=== PATIENT | female | born 1975 | race Caucasian/White ===

== ENCOUNTER → 2020-02-20 10:32 | Outpatient (CLI) | payer MEDICARE, SELFPAY ==
--- NOTE | 2020-02-20 10:34 | RAD_ITS ---
STUDY: X-RAY - RIGHT KNEE REASON FOR EXAM: Right knee pain. TECHNIQUE: 4 view(s) of the knee. COMPARISON: None. FINDINGS: Normal visualized distal femur. Normal visualized proximal tibia and fibula. Normal proximal tibiofibular articulation. There is moderate joint space narrowing of the medial femorotibial compartment. Normal lateral femorotibial compartment. Normal patellofemoral articulation. The soft tissue structures are unremarkable. RAD/Knee 4 or More Views IMPRESSION: Joint space narrowing of the medial femorotibial compartment. Electronically Signed: Andrea Pepper MD at 11:06 EDT Tel , Service support ,
== END ==
PROVIDERS: PCP Internal Medicine; Referring Provider Orthopaedic Surgery; Visit Provider Orthopaedic Surgery
DX: M25.561 Pain in right knee (principal)
CPT/HCPCS: 73564

== ENCOUNTER 2020-03-25 10:47 | Day surgery (SDC) | payer MEDICARE, SELFPAY ==
--- NOTE | 2020-02-20 11:26 | HP_ITS ---
I have re-examined the patient. There are no clinical changes since date of exam. Intake Intake Visit Reasons: RIGHT KNEE Allergies feathers Allergy (Unknown, Verified 02/20/20 10:40) Unknown house dust Allergy (Unknown, Verified 02/20/20 10:40) Unknown sumatriptan [From Imitrex] Adverse Reaction (Severe, Verified 02/20/20 10:40) rapid heart rate vancomycin Adverse Reaction (Severe, Verified 02/20/20 10:40) Red man syndrome Medications alprazolam 0.25 mg tablet 0.25 mg PO QHS PRN 02/20/20 [History Confirmed 02/20/20] cholecalciferol (vitamin D3) 1,250 mcg (50,000 unit) capsule 1,250 mcg PO cap 02/20/20 [History Confirmed 02/20/20] ergocalciferol (vitamin D2) 1,250 mcg (50,000 unit) capsule PO 02/20/20 [History Confirmed 02/20/20] hydrochlorothiazide 25 mg tablet ea PO 02/20/20 [History Confirmed 02/20/20] levothyroxine 175 mcg tablet PO 02/20/20 [History Confirmed 02/20/20] lisinopril 5 mg tablet ea PO 02/20/20 [History Confirmed 02/20/20] loratadine 10 mg tablet ea PO 02/20/20 [History Confirmed 02/20/20] lovastatin 10 mg tablet ea PO 02/20/20 [History Confirmed 02/20/20] medroxyprogesterone 150 mg/mL intramuscular suspension mg IM 02/20/20 [History Confirmed 02/20/20] meloxicam 15 mg tablet PO 02/20/20 [History Confirmed 02/20/20] omeprazole 20 mg capsule,delayed release PO 02/20/20 [History Confirmed 02/20/20] rizatriptan 10 mg tablet 10 mg PO ONCE 02/20/20 [History Confirmed 02/20/20] sertraline 50 mg tablet mg PO 02/20/20 [History Confirmed 02/20/20] [facility] Medical History (Updated 02/20/20 @ 10:54 by Tatyana Ruelas) History of Gamma knife radiation (Acute) History of embolism (Acute) history of removal of thyroid (Acute) vocal cord surgery (Acute) Surgical History (Updated 02/20/20 @ 10:54 by Tatyana Ruelas) History of carpal tunnel surgery (Acute) History of cranioplasty (Acute) History of knee surgery (Acute) History of surgical procedure on mouth (Acute) Hx of ventricular shunt (Acute) Social History (Updated 02/20/20 @ 11:[address] Sandi Gao DO) Smoking Status: Current every day smoker tobacco type: cigarettes HPI RIGHT KNEE: Surgical H&P: Yes Details: Parts of this documentation were recorded by a scribe, this documentation accurately reflects the service provided and the decisions made by me, Dr. Sandi Gao, 02/20/20 1015. CARLOS LOVELL is a 44 year old F NEW patient here today for right knee pain. Referred by Shayy. States she as had knee pain since October when she had a twisting injury. She has medial sided knee pain. She is having painful popping. She feels like her knee will give out on her at times. She has been using a Donjoy brace which is helpful. She has had a right knee [place] [address] Jones she has had steroid injection for years and states that the most recent injection was 01/2020 and states this was only effective for maybe 1 week then her pain returned and she had a arthrogram completed of the right knee. Hx of brain tumors 2008. Ortho Exam Right Knee Skin/Wound: No erythema, No ecchymosis, Yes swelling Contralateral Normal: Yes Homans Sign: No 1+: Effusion Knee ROM: Yes ROM-Extension -20 to 0, No ROM-Flexion 0-140 Examination: Yes Med jt line tenderness, No Lat jt line tenderness, Yes Jaylen's Test Stability: NML: Anterior Drawer, NML: Posterior Drawer, NML: Valgus 30, NML: Varus 30 Patellar Tilt Normal: No Patella Grind: Yes Left Knee Homans Sign: No Assessment & Plan Problems 1. Tear of medial meniscus of right knee, current, unspecified tear type, initial encounter S83.241A 2. Mechanical pain of right knee M25.561 Plan Obtained X-rays of patient's right knee. Personally reviewed x-rays. There is no obvious fracture, dislocation, or lucency noted. Personally reviewed patients CT arthrogram of the right knee and educated her that she has a medial meniscus tear along with some mild OA of the knee. Treatment options are steroid injection or PT or surgery repair vs meniscectomy. Reviewed the pre-operative plans with the patient. Risks and benefits of the procedure were fully explained, including but not limited to infection, neurovascular injury, continued pain, arthritis, stiffness, need for further surgery, re-injury, DVT, PE, general risks of anesthesia, and loss of limb or life. The patient understands all the risks. Educated that she will not know until she goes in if she will have a meniscectomy vs repair. Educated that if she has a meniscal root repair then she will require another incision. Will give her anceph for ATB. We discussed the current risk associated COVID-19. While it is understood that there is a community spread of COVID 19 the risk of fran COVID-19 while at [facility] is very low, however, the risk cannot be completely mitigated because of the community spread of the disease. We discussed in detail the risk of exposure to and or potential harm posed by the COVID-19 virus with having a surgery/procedure at this time versus the risk of delaying the surgery/procedure. Is not possible to know either the risk of delaying the surgery procedure or chance of getting an infection with perfect accuracy, but a joint decision was made to proceed at this time with a schedule surgery/procedure as indicated on the consent form. Patient was notified that we will need to comply with any screening or testing [facility] wishes to perform or that surgery may be delayed for any positive results. Follow up to sign surgical consent with Juan Luis Argueta For medial meniscus root repair, synovectomy, repair as indicated. or sooner if pain, swelling, numbness or associated symptoms, or concerns develop. All questions answered. Patient in agreement of plan. Orders Orders: Knee 4 or More Views Today M25.561 Coding Level of Care Code 00869 Diagnoses Tear of medial meniscus of right knee, current, unspecified tear type, initial encounter S83.241A ??Encounter type: initial encounter ??Meniscus tear of knee type: unspecified type ??Tear current or old: current Mechanical pain of right knee M25.561 COVID (Procedure Consent) Procedure Criteria Procedure Criteria: Yes Elective The surgeon/proceduralist and patient have discussed in detail the risk of exposure to and/or potential harm posed by the COVID-19 virus with having a surgery/procedure at this time versus the risk of? delaying the surgery/procedure. It is not possible to know either the risk of delaying the surgery or procedure or chance of getting an infection with perfect accuracy, but a joint decision was made between the patient and the surgeon/proceduralist ?to proceed at this time with the scheduled surgery/procedure as indicated on the consent form. 02/20/20 1126 <Electronically signed by Sandi muniz DO> Date _ Sandi Gao DO
[2020-03-25] VITALS (7 sets, daily range): BP systolic 122–144; BP diastolic 63–82; PULSE 91–100; RESP 16; TEMP 36.2–37.2; O2SAT 97–100; BMI 39.9
[2020-03-25] MEDS: Lactated Ringers 1,000 ML 100 ML IV ×2 (11:26→14:16)
[2020-03-25 12:03] LABS: Internal QC Validated? YES +Cl - CLEAR BKGD; Pregnancy, Urine Negative Negative
[2020-03-25] MEDS: Cefazolin 2 GM in 0.9% Normal Saline 100 ML IV (12:20)
[2020-03-25] MEDS: Epinephrine (1 mg/ml) 1 MG/ML VIAL (12:40)
[2020-03-25] MEDS: Bupiv/Epi 0.25% 30 ML Vial (13:20)
[2020-03-25] MEDS: Mupirocin Ointment 22gm Tube 1 APPLIC (13:22)
--- NOTE | 2020-03-25 13:26 | DCINST_ITS ---
Discharge Diet: No Restrictions - Remove dressings postop day 4 and apply Band- Aids to incision sites, may shower and get incision wet postop day 4, weight- bear as tolerated left leg, call with increased pain numbness tingling or further issues arise, call if calf pain or calf swelling, take pain medications as prescribed do not take any other Tylenol products, follow-up in 2 weeks Discharge Activity: May Not Drive May shower in (days): 1 Ice area for (Minutes): 20 - Every hour while awake. Weight Bearing Status: Weight bearing as tolerated Keep extremity elevated above heart level: Operative Extremity Call your doctor if your incision/area has: Continuous Slow Oozing, Sudden Increased Bleeding, Increased Pain/ Swelling, Increased Redness, Foul Smelling Discharge Call your doctor if you observe: Fever of 101 or Higher, Coldness, Increased Pain, Numbness or Tingling, Change in Color, Calf discomfort Allergies/Adverse Reactions: Allergies feathers Allergy (Unknown, Verified 03/16/20 13:46) Unknown house dust Allergy (Unknown, Verified 03/16/20 13:46) Unknown sumatriptan [From Imitrex] Adverse Reaction (Severe, Verified 03/16/20 13:46) rapid heart rate vancomycin Adverse Reaction (Severe, Verified 03/16/20 13:46) Red man syndrome Medications to take at Discharge cholecalciferol (vitamin D3) 1,250 mcg (50,000 unit) capsule 1,250 mcg PO QWEEK cap 02/20/20 hydrochlorothiazide 25 mg tablet 25 mg PO DAILY 02/20/20 levothyroxine 175 mcg tablet 225 mcg PO DAILY 02/20/20 lisinopril 5 mg tablet 10 mg PO DAILY 02/20/20 loratadine 10 mg tablet 10 mg PO DAILY 02/20/20 lovastatin 10 mg tablet 10 mg PO DAILY 02/20/20 meloxicam 15 mg tablet 15 mg PO DAILY 02/20/20 sertraline 50 mg tablet 50 mg PO DAILY 02/20/20 MedroxyPROGESTERone [Depo-Provera] 150 mg IM .[id number] 03/16/20 Pantoprazole Sodium [Protonix] 40 mg PO DAILY 03/16/20 Rizatriptan Benzoate [Maxalt] 10 mg PO .X1 PRN 03/16/20 Oxycodone HCl/Acetaminophen [Percocet 5/325] 1 - 2 tab PO Q6H PRN PRN 5 Days #28 tab 03/25/20 The following prescriptions were given: Oxycodone HCl/Acetaminophen [Percocet 5/325] 1 - 2 tab PO Q6H PRN PRN 5 Days #28 tab PRN Reason: Pain Transmission Status: Received by [facility] Primary Care Physician: Ramiro Clemens MD [Primary Care Provider] - Test Results: Test results from this visit will be discussed in further detail at your follow- up appointment, if applicable. Please Follow Up With: Sandi Gao, DO - [phone]
--- NOTE | 2020-03-25 13:27 | PCM.OPRPT ---
Report of Operation Date of Procedure: 03/25/20 Pre-Operative Diagnosis: right knee medial meniscus tear, synovitis, osteoarthritis Post-Operative Diagnosis: same Surgery/Procedure Performed:: sark, pmm, extensive synovectomy, lateral tibial plateau chondroplasty card services specialist: Juan Luis Argueta Type of Anesthesia:: General Anesthesiologist: Miguel Angel Pemberton Drains: tt-40min Estimated Blood Loss (mL): min Fluids Replaced: 800cc Description of Procedure: Preop note Patient is a 44-year-old male with continued right knee pain and locking studies confirm a flap tear of her medial meniscus. Risk benefits and alternatives were discussed with patient. Risks include but not limited to blood loss, blood clot, infection, neurovascular, failure procedure, loss of life and loss of limb. Patient is aware like proceed with right knee arthroscopy para indicated Archie GOMEZ We discussed the current risk associated COVID-19. While it is understood that there is a community spread of COVID 19 the risk of fran COVID-19 while at [facility] is very low, however, the risk cannot be completely mitigated because of the community spread of the disease. We discussed in detail the risk of exposure to and or potential harm posed by the COVID-19 virus with having a surgery/procedure at this time versus the risk of delaying the surgery/procedure. Is not possible to know either the risk of delaying the surgery procedure or chance of getting an infection with perfect accuracy, but a joint decision was made to proceed at this time with a schedule surgery/procedure as indicated on the consent form. Patient was notified that we will need to comply with any screening or testing [facility] wishes to perform or that surgery may be delayed for any positive results. Operative note Patient seen and examined preoperative holding area. Right knee was marked. Patient brought to the operating room placed supine on the operating table. Signed, anesthesia, antibiotics were administered. The right leg was prepped and draped usual sterile technique with a tourniquet on her upper thigh. All bony prominences well-padded SCDs placed on locked contralateral limb. We marked out our incision and a bony landmarks for anterolateral anteromedial portal placement. The right legs and elevate exsanguinated tourniquet was raised to a pressure of 250 torr. Timeout was performed. We then performed begin with 11 blade to create anterior lateral portal. Begin our diagnostic arthroscopy. The patellofemoral joint was unremarkable there was extensive synovitis was difficult to visualize the medial joint line. Created anteromedial portal under direct visualization. Inserted a shaver to resect the anterior lateral anteromedial recesses in order to better visualize the knee joint. That point we did visualize about 3 flap tears of her medial meniscus. These were resected back with combination of a shaver and a basket. We then pulled use a probe we did found another flap tear that was talked in that the posterior horn and this was brought into the joint and resected back again with a combination of a shaver and a basket. We then reprobed the medial medial meniscus and it was intact and stable to probing. ACL and PCL with present within the notch. The moved to the lateral joint line. There was grade 2 fibrillated changes at the lateral tibial plateau most unstable at the and nearby the insertion of the lateral horn root which was gently debrided back with a shaver. Again we debrided back further synovitis which was anterior medial and anterior lateral. The knee was then irrigated with copious muscle sterile saline. The portals were closed interrupted 4-0 nylon stitches. Tourniquet was deflated for total working time of 40 minutes. Patient taught procedure well no complications transferred recovery room stable condition. Postoperative Weight-bear as tolerated right leg Call with increased pain numbness tingling further issues redness Follow-up in 2 weeks Right aid has pain prescription This note was generated with [employer] dictation software. It may contain incorrect words, spelling, and punctuation that were not noted in checking the note before signing.
== END 2020-03-25 15:57 | disposition home or self-care (01) ==
LOC: SDC 10:49 → AC 10:50
PROVIDERS: Anesthesiology; PCP Internal Medicine; Referring Provider Orthopaedic Surgery; Visit Provider Orthopaedic Surgery
PROC: (CPT 29882; principal; 2020-03-25 13:10)
DX: S83.241A Other tear of medial meniscus, current injury, right knee, initial encounter (principal); X50.1XXA Overexertion from prolonged static or awkward postures, initial encounter; M25.561 Pain in right knee; M65.861 Other synovitis and tenosynovitis, right lower leg; Z79.1 Long term (current) use of non-steroidal anti-inflammatories (NSAID); Z79.3 Long term (current) use of hormonal contraceptives; F17.210 Nicotine dependence, cigarettes, uncomplicated
CPT/HCPCS: 29876; 29881; 81025; 87635; 94799; J7120; J2405; U0003

== ENCOUNTER 2020-11-18 06:55 | Day surgery (SDC) | payer MEDICARE, SELFPAY ==
--- NOTE | 2020-11-16 10:48 | VDLE_ITS ---
Reason For Study: H/O CONTROL RIGHT LEFT GSV is normal. GSV is normal. CFV is compressible, spontaneous, phasic, CFV is compressible, spontaneous, phasic, competent and demonstrates normal competent, and demonstrates normal augmentation. augmentation. FV is compressible, spontaneous, phasic, FV is compressible, spontaneous, phasic, competent and demonstrates normal competent and demonstrates normal augmentation. augmentation. POP V is compressible, spontaneous, phasic, POP V is compressible, spontaneous, phasic, competent and demonstrates normal competent and demonstrates normal augmentation. augmentation. T/P Trunk is compressible. T/P Trunk is compressible. PTV is compressible. PTV is compressible. RT PerV is compressible. LT PerV is compressible. Procedure Exam performed in department. A preliminary report was called and/or faxed to DR YANG. VL/Venous Duplex US - Yaya Extrem Interpretation Summary No evidence for acute deep venous thrombosis bilateral lower extremities with p atent and compressible bilateral great saphenous veins. Ordering Physician: Sandi Yang Referring Physician: VERENICE BERGER Performed By: Monica Hawkins, BEAR, RVT
[2020-11-18] VITALS (8 sets, daily range): BP systolic 114–155; BP diastolic 63–82; PULSE 79–93; RESP 16–18; TEMP 36.1–36.8; O2SAT 93–99; BMI 39.8
[2020-11-18 07:24] LABS: Internal QC Validated? YES +Cl - CLEAR BKGD; Pregnancy, Urine Negative Negative
[2020-11-18] MEDS: Lactated Ringers 1,000 ML 100 ML IV (07:32)
[2020-11-18] MEDS: Cefazolin 2 GM in 0.9% Normal Saline 100 ML IV (08:25)
--- NOTE | 2020-11-18 08:35 | HP.PCM_ITS ---
History and Physical Intake Intake Visit Reasons: Right knee Allergies feathers Allergy (Unknown, Verified 08/20/20 10:13) Unknown house dust Allergy (Unknown, Verified 08/20/20 10:13) Unknown sumatriptan [From Imitrex] Adverse Reaction (Severe, Verified 08/20/20 10:13) rapid heart rate vancomycin Adverse Reaction (Severe, Verified 08/20/20 10:13) Red man syndrome PFSH Medical History (Updated 03/25/20 @ 13:[address] Sandi Gao, ) History of Gamma knife radiation (Acute) History of embolism (Acute) history of removal of thyroid (Acute) vocal cord surgery (Acute) Surgical History (Updated 03/25/20 @ 13:[address] Sandi Gao DO) History of carpal tunnel surgery (Acute) History of cranioplasty (Acute) History of knee surgery (Acute) History of surgical procedure on mouth (Acute) Hx of ventricular shunt (Acute) Social History (Updated 11/04/20 @ 10:[address] Sandi Gao, ) Smoking Status: Current every day smoker tobacco type: cigarettes HPI Right knee: Surgical H&P: Yes Details: Parts of this documentation were recorded by a scribe, this documentation accurately reflects the service provided and the decisions made by me, Dr. Sandi Gao, 11/03/20 [id number]. CARLOS LOVELL is a 45 year old F here today for her MRI review. Patient brought in the imaging disc and report with her today. Denies any medical changes since last office visit. Denies numbness, tingling or other associated symptoms. pain medial joint line, worse with stairs, worse when squatting, or prolonged sitting. no fever, chills, night sweats, or other constitutional symptoms. see chart. Ortho Exam General General: Yes no acute distress Neurologic: Yes alert, Yes oriented x3 Psychologic: Yes reasonable and appropriate Right Knee Skin/Wound: No erythema, No ecchymosis, No swelling Homans Sign: No Knee ROM: Yes ROM-Extension -20 to 0, No ROM-Flexion 0-140 Examination: Yes Med jt line tenderness, Yes Lat jt line tenderness, Yes Jaylen's Test Stability: NML: Anterior Drawer, NML: Posterior Drawer, NML: Valgus 30, NML: Varus 30 neg homans sign Assessment & Plan Problems 1. Derangement of posterior horn of medial meniscus due to old tear or injury, right knee M23.221 2. Tear of lateral meniscus of right knee, unspecified tear type, unspecified whether old or current tear, subsequent encounter S83.476D Plan Personally reviewed patients MRI fo the right knee on a disc today. Patient educated that she has a posterior horn medial meniscus tear and she has a l ateral meniscus tear. Treatment options are do nothing or PT or bracing or steroid injection or meniscus repair vs meniscectomy or diagnostic right knee arthroscopy or if all fails then she will be looking at TKA. A risk of surgery is increased for OA of the knee. If she has meniscectomy then she will be able to ambulate as tolerated but if she has a meniscus repair then she will be NWB for 6 weeks post op. Patient educated that her right knee medial meniscus was scarred in during the surgery on 03/2020 and if she has to remove the meniscus it will be a total subchondral meniscectomy and this means removal of her whole meniscus which will cause her to develop arthritis. Reviewed the pre-operative plans with the patient. Risks and benefits of the procedure were fully explained, including but not limited to infection, neurovascular injury, continued pain, arthritis, stiffness, need for further surgery, re-injury, DVT, PE, general risks of anesthesia, and loss of limb or life. The patient understands all the risks and does wish to proceed with written consent for right knee arthroscopy medial meniscectomy vs repair, surgery as indicated. She is on a Depo shot and the last injection was about 1 month ago. 3 days prior to surgery we will order a doppler and she will be on blood thinner post op. Follow up 2 weeks post op or sooner if pain, swelling, numbness or associated symptoms, or concerns develop. All questions answered. Patient in agreement of plan. Coding Level of Care Code Off vis,est,level 4 Diagnoses Derangement of posterior horn of medial meniscus due to old tear or injury, right knee M23.221 Tear of lateral meniscus of right knee, unspecified tear type, unspecified whether old or current tear, subsequent encounter S83.031D ??Encounter type: subsequent encounter ??Meniscus tear of knee type: unspecified type ??Tear current or old: unspecified COVID (Procedure Consent) Procedure Criteria Procedure Criteria: Yes Elective The surgeon/proceduralist and patient have discussed in detail the risk of exposure to and/or potential harm posed by the COVID-19 virus with having a surgery/procedure at this time versus the risk of? delaying the surgery/procedure. It is not possible to know either the risk of delaying the surgery or procedure or chance of getting an infection with perfect accuracy, but a joint decision was made between the patient and the surgeon/proceduralist ?to proceed at this time with the scheduled surgery/procedure as indicated on the consent form. P no changes I have re-examined the patient. There are no clinical changes since date of exam.
[2020-11-18] MEDS: Epinephrine (1 mg/ml) 1 MG/ML VIAL (08:45)
--- NOTE | 2020-11-18 09:03 | DCINST_ITS ---
Discharge Diet: No Restrictions - wbat right leg, remove dressings in 4 days and apply bandaids to incision sites, elevate, ice, ankle pumps, jameel stockings for 7 days, call with concerns, follow up in 2 weeks Discharge Activity: May Not Drive May shower in (days): 1 Ice area for (Minutes): 20 - Every hour while awake. Weight Bearing Status: Weight bearing as tolerated Keep extremity elevated above heart level: Operative Extremity Call your doctor if your incision/area has: Continuous Slow Oozing, Sudden Increased Bleeding, Increased Pain/ Swelling, Increased Redness, Foul Smelling Discharge Call your doctor if you observe: Fever of 101 or Higher, Coldness, Increased Pain, Numbness or Tingling, Change in Color, Calf discomfort Allergies/Adverse Reactions: Allergies feathers Allergy (Unknown, Verified 11/18/20 07:02) Unknown house dust Allergy (Unknown, Verified 11/18/20 07:02) Unknown sumatriptan [From Imitrex] Adverse Reaction (Severe, Verified 11/18/20 07:02) rapid heart rate vancomycin Adverse Reaction (Severe, Verified 11/18/20 07:02) Red man syndrome Medications to take at Discharge cholecalciferol (vitamin D3) 1,250 mcg (50,000 unit) capsule 1,250 mcg PO QWEEK cap 02/20/20 hydrochlorothiazide 25 mg tablet 25 mg PO DAILY 02/20/20 levothyroxine 175 mcg tablet 225 mcg PO DAILY 02/20/20 lisinopril 5 mg tablet 10 mg PO DAILY 02/20/20 loratadine 10 mg tablet 10 mg PO DAILY 02/20/20 lovastatin 10 mg tablet 10 mg PO DAILY 02/20/20 meloxicam 15 mg tablet 15 mg PO DAILY 02/20/20 sertraline 50 mg tablet 50 mg PO DAILY 02/20/20 MedroxyPROGESTERone [Depo-Provera] 150 mg IM .[id number] 03/16/20 Pantoprazole Sodium [Protonix] 40 mg PO DAILY 03/16/20 Oxycodone HCl/Acetaminophen [Percocet 5/325] 1 - 2 tablet PO Q6H PRN PRN 5 Days #28 tablet 11/18/20 The following prescriptions were given: Oxycodone HCl/Acetaminophen [Percocet 5/325] 1 - 2 tablet PO Q6H PRN PRN 5 Days #28 tablet PRN Reason: Pain Transmission Status: Received by [facility] Primary Care Physician: Ramiro Clemens MD [Primary Care Provider] - Test Results: Test results from this visit will be discussed in further detail at your follow- up appointment, if applicable. Please Follow Up With: Sandi Gao, - [phone]
--- NOTE | 2020-11-18 09:04 | PCM.OPRPT ---
Report of Operation Date of Procedure: 11/18/20 Pre-Operative Diagnosis: right knee osteoarthritis, med men tear Post-Operative Diagnosis: same Surgery/Procedure Performed:: simón, volodymyr, trochlea chondroplasty environmental services technician: Blaze Antoine Anesthesiologist: Eleuterio Peres Estimated Blood Loss (mL): min Fluids Replaced: 700cc lr Description of Procedure: Preop note Patient is a 45-year-old female with continued right knee pain after surgery done about a year ago. We did discuss the patient has arthritis on MRI confirms a meniscus tearing as well as arthritis we did discuss that even a new scope problem provide her much pain relief however patient states she is not mentally ready for total knee and would like to at least attempt is knee scope to see if this buys her anytime. Risk benefits and alternatives surgery discussed with patient. Risk including but not limited to blood loss, blood clot, infection, neurovascular, failure procedure, loss of life and loss of limb. Patient has tenderness along her medial joint line positive Jaylen's. Negative Homans today. We will proceed with right knee arthroscopy repair as indicated. Operative note Patient seen examined preop preop holding area. Right leg was marked. Patient brought to the operating placed supine on the operating table. Signed, anesthesia, antibiotics were administered. The right leg was prepped and draped in usual sterile technique with a tourniquet on her upper thigh. All bony problems well-padded SCD placed on her contralateral limb. We marked our previous portal placement. The right leg was then elevate exsanguinated tourniquet is raised to a pressure of 250 torr. Timeout was performed. We created an anterior lateral portal with an 11 blade began our diagnostic arthroscopy. She had a grade 3 fissure in the central portion of her trochlea. We then moved to the anteromedial joint line we created anteromedial portal under direct visualization. She had grade 4 eburnated changes of her medial femoral condyle as well as her medial tibial plateau most encompassing the entire facets of both. There are no loose bodies in the inferior or the start of the anterior medial anterior lateral recesses. There was a radial tear of the mid body of the meniscus we then inserted a shaver and this was resected back to stable rim. ACL and PCL were present in the notch the lateral femoral condyle lateral tibial plateau and lateral meniscus were intact and stable probing. We then inserted a shaver and debrided gently back the trochlea had some unstable pieces. Knee was irrigated with copious nonsterile saline. Portals were closed with interrupted nylon stitches. Tourniquet was deflated. Sterile dressings were applied. Patient taught procedure well no complications transferred recovery room in stable condition Postoperative Weight-bear as tolerated right leg Prescriptions at pharmacy Discussed with needs total knee Follow-up in 2 weeks This note was generated with [employer] dictation software. It may contain incorrect words, spelling, and punctuation that were not noted in checking the note before signing.
[2020-11-18] MEDS: Bupiv/Epi 0.25% 30 ML Vial (09:05)
[2020-11-18] MEDS: Mupirocin Ointment 22gm Tube 1 APPLIC (09:10)
--- NOTE | 2020-11-18 11:21 | SUR.PHASEII ---
PATIENT AND SPOUSE ARE UPSET THAT HER SPOUSE DID NOT GET TO SPEAK TO DR. YANG AFTER SURGERY. HER GOT THE TEXT TO RETURN TO THE ROOM, BUT THE DOCTOR DID NOT COME IN. THIS NURSE CALLED THE OR CHARGE NURSE TO ALERT HER THAT THEY STILL WANT TO SPEAK WITH HER. SHE IS IN SURGERY CURRENTLY AND WONT BE OUT FOR A WHILE. THE PATIENT DOES NOT WANT TO WAIT ON THE DOCTOR AND WOULD LIKE TO RECEIVE A PHONE CALL.
--- NOTE | 2020-11-18 11:32 | SUR.PHASEII ---
DR. YANG WAS ABLE TO SPEAK TO THE PATIENT AND SPOUSE PRIOR TO DISCHARGE. THEY GOT ALL THEIR QUESTIONS ANSWERED AND WERE SATISFIED.
== END 2020-11-18 11:33 | disposition home or self-care (01) ==
LOC: SDC 06:55 → AC 07:00
PROVIDERS: Anesthesiology; PCP Internal Medicine; Referring Provider Orthopaedic Surgery; Visit Provider Orthopaedic Surgery
PROC: (CPT 29882; principal; 2020-11-18 08:25)
DX: M23.221 Derangement of posterior horn of medial meniscus due to old tear or injury, right knee (principal); M25.561 Pain in right knee; M17.11 Unilateral primary osteoarthritis, right knee; I10 Essential (primary) hypertension; G47.30 Sleep apnea, unspecified; K21.9 Gastro-esophageal reflux disease without esophagitis; F32.9 Major depressive disorder, single episode, unspecified; F41.9 Anxiety disorder, unspecified; E78.00 Pure hypercholesterolemia, unspecified; F17.210 Nicotine dependence, cigarettes, uncomplicated; Z87.442 Personal history of urinary calculi; Z98.2 Presence of cerebrospinal fluid drainage device; Z79.3 Long term (current) use of hormonal contraceptives
CPT/HCPCS: 29881; 81025; 87426; 93970; C9803; J7120; J2405